=== PATIENT | male | born 2000 | race African-American/Black ===

== ENCOUNTER 2020-12-28 20:02 | Emergency (ER) | payer MEDICAID ==
[~2020-12-28] VITALS: Ht 182.9 cm; Wt 90.9 kg
[2020-12-28] MEDS ORDERED: IBUPROFEN 800 MG TABLET PO ONE (22:30)
[2020-12-28] MEDS ORDERED: ACETAMINOPHEN 500 MG TABLET PO ONE (22:30)
[2020-12-29 01:01] VITALS: BP 121/76
== END 2020-12-29 01:08 | disposition home or self-care (01) ==
LOC: EMS 20:05
DX: S39.012A Strain of muscle, fascia and tendon of lower back, initial encounter (principal); S30.1XXA Contusion of abdominal wall, initial encounter; S40.212A Abrasion of left shoulder, initial encounter; M54.2 Cervicalgia; J45.909 Unspecified asthma, uncomplicated; V49.9XXA Car occupant (driver) (passenger) injured in unspecified traffic accident, initial encounter; Y93.89 Activity, other specified; Y92.89 Other specified places as the place of occurrence of the external cause; Y99.8 Other external cause status
CPT/HCPCS: 72072; 72110; 99284; Z7502; Z7610

== ENCOUNTER 2024-04-13 23:24 | Emergency (ER) | payer MEDICAID ==
[~2024-04-13] VITALS: Ht 177.8 cm; Wt 90.9 kg
[2024-04-13 23:33] VITALS: BP 137/96; PULSE 129; RESP 18; TEMP 102.4; O2SAT 92
[2024-04-13 23:36] LABS: COVID AG,FIA SOURCE NASAL SWAB
[2024-04-13] MEDS ORDERED: IPRATROPIUM BROMIDE 0.5 MG/2.5 ML NEB SOLUTION NEB ONE (23:45)
[2024-04-13] MEDS ORDERED: ALBUTEROL SULFATE 2.5 MG/0.5 ML NEB SOLUTION NEB ONE (23:45)
[2024-04-14 00:04] LABS: INFLUENZA TYPE A NEGATIVE FOR TYPE A (NEGATIVE); INFLUENZA TYPE B NEGATIVE FOR TYPE B (NEGATIVE)
[2024-04-14] MEDS: PredniSONE 20 MG TABLET PO ONE (00:04)
[2024-04-14] MEDS: ACETAMINOPHEN 500 MG TABLET PO ONE (00:04)
[2024-04-14 00:05] LABS: SARS-COV2 (COVID) ANTIGEN,FIA Negative (Negative)
[2024-04-14] MEDS ORDERED: PRED-554 PO (02:23)
[2024-04-14] MEDS ORDERED: ALBU18HF12 IH (02:23)
[2024-04-14] MEDS: ALBUTEROL SULFATE HFA 90 MCG/PUFF 8 GM INHALER IH ONE (03:57)
== END 2024-04-14 04:24 | disposition home or self-care (01) ==
LOC: EMS 23:25
DX: J06.9 Acute upper respiratory infection, unspecified (principal); J45.909 Unspecified asthma, uncomplicated; B97.89 Other viral agents as the cause of diseases classified elsewhere; Z20.822 Contact with and (suspected) exposure to COVID-19
CPT/HCPCS: 99284; 87426; 87804; 71045; 94640; J7512; J3535